=== PATIENT | male | born 1990 | race African-American/Black ===

== ENCOUNTER 2016-11-13 02:22 | Emergency (ER) | payer MEDICAID ==
[~2016-11-13] VITALS: Ht 182.9 cm; Wt 127.0 kg
[2016-11-13 07:10] LABS: CLARITY URINE CLEAR (CLEAR); COLOR URINE YELLOW (YELLOW); GLUCOSE URINE NEGATIVE (NEGATIVE); KETONES URINE NEGATIVE (NEGATIVE); LEUKOCYTE ESTERASE URINE NEGATIVE (NEGATIVE); NITRITE URINE NEGATIVE (NEGATIVE); OCCULT BLOOD URINE NEGATIVE (NEGATIVE); PROTEIN URINE NEGATIVE (NEGATIVE)
[2016-11-13 09:44] VITALS: BP 126/75
== END 2016-11-13 09:46 | disposition home or self-care (01) ==
LOC: ER 02:24
DX: S30.22XA Contusion of scrotum and testes, initial encounter (principal); W22.03XA Walked into furniture, initial encounter; Y93.89 Activity, other specified; Y92.018 Other place in single-family (private) house as the place of occurrence of the external cause
CPT/HCPCS: 76870; 81003; 93976; 99285

== ENCOUNTER 2016-12-17 23:19 | Emergency (ER) | payer MEDICAID ==
[~2016-12-17] VITALS: Ht 182.9 cm; Wt 127.0 kg
[2016-12-18 05:54] LABS: CLARITY URINE CLEAR (CLEAR); COLOR URINE YELLOW (YELLOW); GLUCOSE URINE NEGATIVE (NEGATIVE); KETONES URINE NEGATIVE (NEGATIVE); LEUKOCYTE ESTERASE URINE NEGATIVE (NEGATIVE); NITRITE URINE NEGATIVE (NEGATIVE); OCCULT BLOOD URINE NEGATIVE (NEGATIVE); PH URINE 5.5 (4.5-8.0); PROTEIN URINE NEGATIVE (NEGATIVE); SPECIFIC GRAVITY URINE 1.034 (1.005-1.030)
[2016-12-18 06:38] VITALS: BP 119/74
== END 2016-12-18 07:14 | disposition home or self-care (01) ==
LOC: ER 23:19
DX: S30.22XA Contusion of scrotum and testes, initial encounter (principal); W01.10XA Fall on same level from slipping, tripping and stumbling with subsequent striking against unspecified object, initial encounter; Y93.89 Activity, other specified; Y92.89 Other specified places as the place of occurrence of the external cause; Y99.8 Other external cause status
CPT/HCPCS: 76870; 81003; 93976; 99285; Z7610

== ENCOUNTER 2017-01-13 21:39 | Emergency (ER) | payer MEDICAID ==
[~2017-01-13] VITALS: Ht 182.9 cm; Wt 128.0 kg
[2017-01-14 00:21] LABS: CLARITY URINE CLEAR (CLEAR); COLOR URINE YELLOW (YELLOW); GLUCOSE URINE NEGATIVE (NEGATIVE); KETONES URINE TRACE (NEGATIVE); LEUKOCYTE ESTERASE URINE NEGATIVE (NEGATIVE); NITRITE URINE NEGATIVE (NEGATIVE); OCCULT BLOOD URINE NEGATIVE (NEGATIVE); PROTEIN URINE TRACE (NEGATIVE); SPECIFIC GRAVITY URINE 1.034 (1.005-1.030)
[2017-01-14 00:35] LABS: *AMPHETAMINES SCREEN URINE NEGATIVE (NEGATIVE); *BARBITURATES SCREEN URINE NEGATIVE (NEGATIVE); *BENZODIAZEPINES SCREEN URINE NEGATIVE (NEGATIVE); *COCAINE SCREEN URINE NEGATIVE (NEGATIVE); CANNABINOID URINE SCREEN NEGATIVE (NEGATIVE); METHADONE URINE SCREEN NEGATIVE (NEGATIVE); OPIATES URINE SCREEN NEGATIVE (NEGATIVE); PHENCYCLIDINE URINE SCREEN NEGATIVE (NEGATIVE)
[2017-01-14 01:51] VITALS: BP 132/78
== END 2017-01-14 01:54 | disposition home or self-care (01) ==
LOC: ER 21:39
DX: S30.22XA Contusion of scrotum and testes, initial encounter (principal); R03.0 Elevated blood-pressure reading, without diagnosis of hypertension; W22.8XXA Striking against or struck by other objects, initial encounter; Y93.89 Activity, other specified; Y92.89 Other specified places as the place of occurrence of the external cause
CPT/HCPCS: 80305; 81001; 87086; 99284

== ENCOUNTER 2017-04-09 17:20 | Emergency (ER) | payer MEDICAID ==
[~2017-04-09] VITALS: Ht 182.9 cm; Wt 127.0 kg
[2017-04-09 21:15] LABS: CLARITY URINE CLEAR (CLEAR); COLOR URINE YELLOW (YELLOW); GLUCOSE URINE NEGATIVE (NEGATIVE); KETONES URINE TRACE (NEGATIVE); LEUKOCYTE ESTERASE URINE NEGATIVE (NEGATIVE); NITRITE URINE NEGATIVE (NEGATIVE); OCCULT BLOOD URINE NEGATIVE (NEGATIVE); PH URINE 5.5 (4.5-8.0); PROTEIN URINE NEGATIVE (NEGATIVE); SPECIFIC GRAVITY URINE 1.033 (1.005-1.030)
[2017-04-09] MEDS ORDERED: IBUPROFEN 600MG TABLET PO ONE (22:30)
[2017-04-09 23:18] VITALS: BP 132/69
== END 2017-04-09 23:27 | disposition home or self-care (01) ==
LOC: ER 17:56
DX: S30.22XA Contusion of scrotum and testes, initial encounter (principal); W21.89XA Striking against or struck by other sports equipment, initial encounter; Y93.55 Activity, bike riding; Y92.89 Other specified places as the place of occurrence of the external cause
CPT/HCPCS: 76870; 81003; 93976; 99285; Z7610